=== PATIENT | male | born 1965 ===

== ENCOUNTER 2021-05-30 09:43 | Emergency (ER) | payer SELFPAY ==
[~2021-05-30] VITALS: Ht 175.3 cm; Wt 114.6 kg
[2021-05-30] MEDS ORDERED: IV NORMAL SALINE 1,000ML 1,000 ML IV ONE (10:00)
--- NOTE | 2021-05-30 11:01 | PHYS DOC ---
Past History Past Surgical History: No Surgical History Additional Past Surgical Histo: unable to asses Alcohol Use: None General Adult EDM: Chief Complaint: SEIZURE HPI: HPI: Patient is a [age] year old [sex] who presents with [] Review of Systems: Review of Systems: Review of systems limited secondary to altered mental status Current Medications: Current Meds: Current Medications Medications (Trade) Dose Ordered Sig/Crissy Start Time Stop Time Status Last Admin Dose Admin Lorazepam (Ativan Inj) 0.5 mg 1X ONCE 05/30/21 10:00 05/30/21 10:06 DC 05/30/21 10:00 0.5 MG Sodium Chloride 1,000 ml @ 1,000 mls/hr 1X ONCE 05/30/21 10:00 05/30/21 10:59 05/30/21 10:00 1,000 MLS/HR Allergies: Allergies: Allergies Coded Allergies Type Severity Reaction Last Updated Verified Unable to Assess 05/30/21 No Physical Exam: PE: Constitutional: Well developed, well nourished, no acute distress, non-toxic appearance HENT: Normocephalic, atraumatic Eyes: PERRL, EOMI, conjunctiva normal, no discharge Neck: Normal range of motion, no tenderness, supple Lungs & Thorax: No respiratory distress, equal chest rise and fall Abdomen: Soft, no tenderness Skin: Warm, dry, no erythema, no rash Back: No tenderness, no CVA tenderness Extremities: No tenderness, ROM intact, no edema Neurologic: Alert and oriented X 3, normal motor function, normal sensory function, no focal deficits noted Psychologic: Affect normal, judgment normal Current Patient Data: Vital Signs: Vital Signs Date Time Temp Pulse Resp B/P (MAP) Pulse Ox O2 Delivery O2 Flow Rate FiO2 05/30/21 10:01 98.2 74 16 142/75 (97) 100 Room Air EKG: EKG: @1045 NSR at 68bpm, NO ST elevation, QRS 102ms, QT/QTc 362/389ms Radiology/Procedures: Radiology/Procedures: PROCEDURE: CT CODE STROKE HEAD WO Exam Date: 05/30/2021 9:[address] STROKE HEAD W/O Indication: Reason: aphasia / Spl. Instructions: / History: . TECHNIQUE: Head CT was performed without intravenous contrast. One or more of the following dose reduction techniques were utilized: *Automated exposure control (AEC) *Adjustment of mA and/or kV according to patient size *Use of iterative reconstruction technique *CT scan done according to ALARA, or ALARA/IMAGE GENTLY FINDINGS: Postoperative changes of bifrontal craniotomies noted. 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 The ventricles and sulci are normal for the patient's stated age. There is no evidence of acute intracranial hemorrhage, extra-axial collection, mass effect, midline shift, or acute territorial infarct. No lesion of the skull base or the calvarium is seen. There is a retention cyst in the left maxillary sinus. The visualized paranasal sinuses, mastoid air cells and orbits are otherwise normal in appearance. IMPRESSION: No evidence for acute intracranial abnormality. Postoperative changes as described with chronic inflammation the right frontal lobe. Findings discussed with ANNA GARCES DO at 05/30/2021 9:55 AM. Due to network technical difficulties, there was a slight delay between the time the images were obtained and the time the images became available for interpretation on the PACS system. FOR INTERNAL CODING PURPOSES Critical result: RESULT CODE: (C) Electronically signed by: Caleb Purvis MD (05/30/2021 10:20 AM) [id number] PROCEDURE: CHEST AP ONLY Exam Date: 05/30/2021 10:02 AM XR CHEST 1V Indication: Reason: Altered mental status / Spl. Instructions: / History: . FINDINGS/ IMPRESSION: The aorta is calcified. The cardiac silhouette and pulmonary vasculature are within normal limits. There is no focal consolidation, pleural effusion or pneumothorax. The visualized osseous structures are intact. Electronically signed by: Caleb Purvis MD (05/30/2021 11:09 AM) [id number] Heart Score: C/O Chest Pain: N/A Course & Med Decision Making: Course & Med Decision Making Pertinent Labs and Imaging studies reviewed. (See chart for details) [] Mihiron Disclaimer: Dragrocky Disclaimer: This electronic medical record was generated, in whole or in part, using a voice recognition dictation system. Departure Departure: Impression: Primary Impression: Breakthrough seizure Disposition: 01 HOME / SELF CARE / HOMELESS Condition: STABLE Referrals: PCP,NO (PCP) Patient Instructions: Seizure, Adult, Ivin-yo-[id number] Additional Instructions: Please follow closely with your neurologist. Continue to take prescribed medication as directed. ANNA GARCES DO May 30, 2021 11:01
[2021-05-30 11:26] LABS: BASO % 0 % (0-3); EOS % 0 % (0-3); HEMATOCRIT 44.7 % (39.0-53.0); HEMOGLOBIN 15.3 g/dL (13.0-17.5); LYMPH # 1.1 x10^3/uL (1.0-4.8); LYMPH % 32 % (24-48); MEAN CORPUSCULAR HEMOGLOBIN 34 pg (25-35); MEAN CORPUSCULAR HGB CONC 34 g/dL (31-37); MEAN CORPUSCULAR VOLUME 100 fL (79-100); MONO # 0.4 x10^3/uL (0.0-1.1); MONO % 10 % (0-9); NEUT % 58 % (31-73); PLATELET COUNT 105 x10^3/uL (140-400); RED BLOOD COUNT 4.49 x10^6/uL (4.30-5.70); RED CELL DISTRIBUTION WIDTH 13.9 % (11.5-14.5); WHITE BLOOD COUNT 3.5 x10^3/uL (4.0-11.0)
[2021-05-30 11:37] LABS: CALCIUM 8.6 mg/dL (8.5-10.1); CREATININE 0.8 mg/dL (0.7-1.3); GFR 100.7; POTASSIUM 3.8 mmol/L (3.5-5.1)
--- NOTE | 2021-05-30 11:43 | RAD ---
Exam Date: 05/30/2021 9:[address] STROKE HEAD W/O Indication: Reason: aphasia / Spl. Instructions: / History: . TECHNIQUE: Head CT was performed without intravenous contrast. One or more of the following dose re duction techniques were utilized: *Automated exposure control (AEC) *Adjustment of mA and/or kV according to patient size *Use of iterative reconstruction technique *CT scan done according to ALARA, or ALARA/IMAGE GENTLY FINDINGS: Postoperative changes of bifrontal craniotomies noted. 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 The ventricles and sulci are normal for the patient's stated age. There is no evidence of acute int racranial hemorrhage, extra-axial collection, mass effect, midline shift, or acute territorial infarc t. No lesion of the skull base or the calvarium is seen. There is a retention cyst in the left maxil hang sinus. The visualized paranasal sinuses, mastoid air cells and orbits are otherwise normal in a ppearance. IMPRESSION: No evidence for acute intracranial abnormality. Postoperative changes as described with chronic inflammation the right frontal lobe. Findings discussed with ANNA GARCES DO at 05/30/2021 9:55 AM. Due to network technical difficult ies, there was a slight delay between the time the images were obtained and the time the images becam e available for interpretation on the PACS system. FOR INTERNAL CODING PURPOSES Critical result: RESULT CODE: (C) Electronically signed by: Caleb Purvis MD (05/30/2021 10:20 AM) [id number]
--- NOTE | 2021-05-30 11:43 | RAD ---
Exam Date: 05/30/2021 10:02 AM XR CHEST 1V Indication: Reason: Altered mental status / Spl. Instructions: / History: . FINDINGS/ IMPRESSION: The aorta is calcified. The cardiac silhouette and pulmonary vasculature are within normal limits. There is no focal consolidation, pleural effusion or pneumothorax. The visualized osseous structures are intact. Electronically signed by: Caleb Purvis MD (05/30/2021 11:09 AM) [id number]
[2021-05-30 11:45] LABS: ALBUMIN 3.1 g/dL (3.4-5.0); ALBUMIN/GLOBULIN RATIO 0.8 (1.0-1.7); MAGNESIUM 1.9 mg/dL (1.8-2.4); TOTAL BILIRUBIN 0.5 mg/dL (0.2-1.0); TOTAL PROTEIN 6.8 g/dL (6.4-8.2)
[2021-05-30 12:11] LABS: BACTERIA,URINE 0 /HPF (0-FEW); CLARITY,URINE CLOUDY; COLOR,URINE YELLOW; GLUCOSE,URINE >=1000 mg/dL (NEG); NITRITE,URINE NEG (NEG); RBC,URINE 0 /HPF (0-2); SQUAMOUS EPITHELIAL CELL,UR OCC /LPF
[2021-05-30 12:15] LABS: VAL ACID 99 mcg/mL (50-100)
[2021-05-30 12:25] LABS: AMPHETAMINE/METHAMPHETAMINE NEG (NEG); BARBITURATES NEG (NEG); BENZODIAZEPINES POS (NEG); CANNABINOIDS NEG (NEG); COCAINE NEG (NEG); METHADONE NEG (NEG); OPIATES NEG (NEG); PHENCYCLIDINE NEG (NEG)
--- NOTE | 2021-05-30 13:24 | EKG ---
[address] [address] Test Date: 2021-05-30 Test Time: 10:45:13 Pat Name: FLAVIA MEADOWS Department: Room: Gender: M Wheat Farmer: LOTTIE : 1965 Requested By: ANNA GARCES Order Number: [id number] Reading MD: Marty García Measurements Intervals [place] Rate: 68 P: 38 IA: 176 QRS: -24 QRSD: 102 T: 61 QT: 362 QTc: 389 Interpretive Statements SINUS RHYTHM LEFTWARD AXIS LEFT VENTRICULAR HYPERTROPHY ABNORMAL ECG RI6.02 No previous ECG available for comparison Electronically Signed On 06-01-2021 21:29:56 CDT by Marty García
[2021-05-30 13:45] VITALS: BP 123/90
== END 2021-05-30 14:28 | disposition home or self-care (01) ==
LOC: ER 09:43 → EDBD 09:43 → ER 14:28
DX: G40.89 Other seizures (principal)
CPT/HCPCS: 36415; 70450; 71045; 80053; 80164; 80307; 81001; 82140; 82553; 83605; 83735; 84484; 85025; 85610; 85730; 93005; 96361; 96365; 96375; 96376; 99285; G0480; J1953; J2060; J7030; 96374